=== PATIENT | male | born 2000 | race Caucasian/White ===

== ENCOUNTER → 2019-10-19 | Outpatient (CLI) | payer OTHER ==
--- NOTE | 2019-10-19 11:47 | XR ---
EXAMINATION TYPE: XR wrist complete RT DATE OF EXAM: 10/19/2019 CLINICAL HISTORY: Right wrist pain and hand swelling after fall TECHNIQUE: Frontal, lateral and oblique images of the right wrist are obtained. COMPARISON: None FINDINGS: There is no acute fracture/dislocation evident in the right wrist. The joint spaces in th e right wrist appear within normal limits. The overlying soft tissue appears unremarkable. Negative ulnar variance is incidentally noted. IMPRESSION: There is no acute fracture or dislocation in the right wrist.
== END | disposition home or self-care (01) ==
LOC: RADXRYALE 11:22
PROVIDERS: ATTEND Internal Medicine
DX: M25.531 Pain in right wrist (principal)

== ENCOUNTER 2023-01-13 19:50 | Emergency (ER) | payer OTHER ==
[2023-01-13 19:56] VITALS: RESP 18; TEMP 98.9
[2023-01-13] MEDS ORDERED: LIDOCAINE 5% PATCH TOPICAL STA (20:13)
[2023-01-13] MEDS ORDERED: CYCLOBENZAPRINE 5 MG TAB PO STA (20:14)
[2023-01-13] MEDS ORDERED: KETOROLAC 15 MG/ML 1 ML VIAL IM STA (20:14)
--- NOTE | 2023-01-13 20:46 | XR ---
EXAMINATION TYPE: XR cervical spine comp DATE OF EXAM: 01/13/2023 CLINICAL HISTORY: pain COMPARISON: NONE TECHNIQUE: Frontal, lateral, oblique, swimmers, and open mouth view of the cervical spine are obtaine d. FINDINGS: The cervical spine is visualized in its entirety from C1 thru the top of T1 level. It is s atisfactory in alignment without evidence of acute fracture or dislocation. The pre-vertebral soft t issue appears within normal limits. Disc spaces are well preserved. The C1-C2 articulation is unremar kable on the open mouth view. The oblique images are within normal limits. IMPRESSION: No acute fracture or dislocation is seen in the cervical spine.ICD 10 NO FRACTURE, INITI AL EVALUATION
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
[2023-01-13 22:20] VITALS: BP 128/86; PULSE 71
== END 2023-01-13 22:23 | disposition home or self-care (01) ==
LOC: EC 19:50
DX: S16.1XXA Strain of muscle, fascia and tendon at neck level, initial encounter (principal); S09.90XA Unspecified injury of head, initial encounter; F17.290 Nicotine dependence, other tobacco product, uncomplicated; Z88.0 Allergy status to penicillin; V49.50XA Passenger injured in collision with unspecified motor vehicles in traffic accident, initial encounter
CPT/HCPCS: 72050; 99284; 96372; J1885

== ENCOUNTER → 2023-06-25 | Outpatient (CLI) | payer OTHER ==
--- NOTE | 2023-06-26 07:32 | MR ---
MRI CERVICAL SPINE: CLINICAL HISTORY: Cervicalgia. TECHNIQUE: Multiplanar, multisequence imaging of the cervical spine is performed without and with IV contrast, 7.5 cc of gadolinium was given intravenously. COMPARISON: Cervical spine x-ray January 13, 2023. FINDINGS: Sagittal images of the cervical spine show the craniocervical junction to appear within nor mal limits. The cervical and upper thoracic spinal cord is normal in course, caliber, and signal. V ertebral alignment is stable and straightened. The vertebral body and intravertebral disk heights ar e normal. The bone marrow signal intensity is within normal limits. No abnormal postcontrast enhance ment is seen. Axial images show small left paracentral disc protrusion at C5-C6 level on axial image 29 minimally e ffacing the anterior thecal sac and causing mild left-sided neural foraminal narrowing. Other axial i mages appear within normal limits. IMPRESSION: Straightening of cervical spine with some degenerative change at C5-C6 level seen as deta iled above.
== END | disposition home or self-care (01) ==
LOC: RADMRIMAIN 19:54
PROVIDERS: ATTEND Internal Medicine
DX: M47.812 Spondylosis without myelopathy or radiculopathy, cervical region (principal)
CPT/HCPCS: 72156; A9585